=== PATIENT | male | born 1930 | race Caucasian/White ===

== ENCOUNTER 2018-03-26 15:07 | Inpatient (IN) | payer MEDICARE ==
[2018-03-26] MEDS ORDERED: Sodium Chloride 0.9% 500 ML IV ONE (19:05)
[2018-03-26] MEDS ORDERED: Acetaminophen/HYDROcodone 325-5 MG Tab PO PRN (19:05)
[2018-03-26] MEDS ORDERED: Acetaminophen 325 MG Tab PO PRN (19:05)
[2018-03-26] MEDS ORDERED: Ondansetron 4 MG Tab.DIS PO PRN (19:05)
[2018-03-26] MEDS ORDERED: valACYclovir 1,000 MG Tab PO SCH (21:00)
[2018-03-26] MEDS ORDERED: valACYclovir 1,000 MG Tab PO ONE (21:30)
[2018-03-26] MEDS: Cephalexin 500 MG Cap PO SCH (21:30)
[2018-03-26] MEDS: Enoxaparin 30 MG/0.3 ML Syringe SUBCUT SCH (21:30)
[2018-03-27] MEDS: Sodium Chloride 0.9% 1,000 ML IV SCH ×3 (03:03→23:03)
[2018-03-27] MEDS ORDERED: cefTRIAXone 1,000 MG in Sodium Chloride 0.9% 50 ML IV SCH (09:15)
--- NOTE | 2018-03-27 09:22 | PCM.HP ---
H&P History of Present Illness - General Date of Service: 03/27/18 Admit Problem/Dx: Admission Diagnosis/Problem Admission Diagnosis/Problem Acute kidney injury Source of Information: Patient History Limitations: Reports: No Limitations - History of Present Illness Initial Comments - Free Text/Narative: This is an 87-year-old male patient that was sent to the ER by Dr. Stringer because of worsening labs. Apparently his creatinine is increasing. He has a history of chronic renal failure. Patient is a very poor historian. He says he came here because he has sores on his scrotum. He has no history of any viral infection including herpes. He has history of prostate cancer saw urologist last August 2017. For the last 4-6 months after this he's been leaking urine consistently. He does a straight catheter at night but during the day wears depends and leaks urine all day. He has pain in sores all over his scrotum. He has no fevers, chills, dysuria, pyuria, hematuria. He denies back pain or fatigue. Scrotum Pain Score (Numeric/FACES): 0 - Related Data Allergies/Adverse Reactions: Allergies Allergy/AdvReac Type Severity Reaction Status Date / Time No Known Allergies Allergy Verified 03/26/18 16:05 Home Medications: Home Meds Sennosides [Senna Laxative] 12.5 mg PO DAILY 07/03/16 [History] Tamsulosin [Tamsulosin 24 Hr] 0.4 mg PO DAILY 07/03/16 [History] amLODIPine [Norvasc] 5 mg PO DAILY 07/03/16 [History] Betamethasone/Clotrimazole [Lotrisone] 1 applic BID 03/26/18 [History] Celecoxib 200 mg DAILY 03/26/18 [History] Cephalexin 500 mg BID 03/26/18 [History] Leuprolide [Lupron Depot] 30 mg IM ASDIRECTED 03/26/18 [History] Past Medical History HEENT History: Reports: Impaired Vision Cardiovascular History: Reports: Hypertension Genitourinary History: Reports: BPH, Prostate Disorder, Renal Disease, Urinary Incontinence Musculoskeletal History: Reports: Osteoarthritis Other Musculoskeletal History: R knee pain, recent steroid injection May 2016, Psychiatric History: Reports: Anxiety, Depression Oncologic (Cancer) History: Reports: Prostate Other Oncologic History: injections for prostate CA - Infectious Disease History Infectious Disease History: Reports: Chicken Pox - Past Surgical History Head Surgeries/Procedures: Reports: None Male Surgical History: Reports: TURP-Transurethral Resection of Prostate, Vasectomy Musculoskeletal Surgical History: Reports: Hip Replacement Other Musculoskeletal Surgeries/Procedures:: R hip replacement Oncologic Surgical History: Reports: None Social & Family History - Family History Family Medical History: Noncontributory - Tobacco Use Smoking Status *Q: Never Smoker Second Hand Smoke Exposure: Yes - Caffeine Use Caffeine Use: Reports: Coffee Other Caffeine Use: 2-3 CUPS PER DAY - Recreational Drug Use Recreational Drug Use: No - Living Situation & Occupation Living situation: Reports: Single, Other Occupation: Retired H&P Review of Systems - Review of Systems: Review Of Systems: See Below General: Reports: No Symptoms HEENT: Reports: Rhinitis Pulmonary: Reports: No Symptoms Cardiovascular: Reports: No Symptoms Gastrointestinal: Reports: No Symptoms Genitourinary: Reports: Incontinence. Denies: Dysuria, Frequency, Urgency, Hematuria, Discharge Musculoskeletal: Reports: No Symptoms Skin: Reports: Other (See history of present illness) Psychiatric: Reports: No Symptoms Neurological: Reports: No Symptoms Hematologic/Lymphatic: Reports: No Symptoms Immunologic: Reports: No Symptoms Exam - Exam Exam: See Below - Vital Signs Vital Signs: Last Vital Signs Temp 97.4 F 03/27/18 08:00 Pulse 66 03/27/18 08:00 Resp 18 03/27/18 08:00 BP 120/62 03/27/18 08:00 Pulse Ox 97 03/27/18 08:00 Weight: 183 lb 9.6 oz - Exam General: Alert, Oriented, Cooperative HEENT: Mucosa Moist & Grubbs, Posterior Pharynx Clear, TMs Clear Neck: Supple, Trachea Midline, Full Range of Motion. No: Lymphadenopathy, Carotid Bruit Lungs: Clear to Auscultation, Normal Respiratory Effort. No: Crackles, Rales, Rhonchi, Wheezing Cardiovascular: Regular Rhythm, Normal S2. No: Irregular Rhythm, Bradycardia, Tachycardia, Systolic Murmur, Diastolic Murmur GI/Abdominal Exam: Normal Bowel Sounds, Soft, Non-Tender, No Organomegaly, No Distention, No Abnormal Bruit, No Mass (Male) Exam: Other (Patient is uncircumcised and he is leaking urine when I examined him. His scrotum is slightly swollen and the skin please see skin exam) Back Exam: Normal Inspection, Full Range of Motion Extremities: Normal Inspection, Non-Tender, No Pedal Edema Skin: Other (Skin on the posterior scrotum and medial thighs has a little breakdown of the epithelium and ulcers. They're not drainage. There is just residual urine standing.) Neurological: Normal Gait, Normal Speech Neuro Extensive - Mental Status: Alert, Oriented x3, Normal Mood/Affect Neuro Extensive - Motor, Sensory, Reflexes: Normal Gait Psychiatric: Alert, Normal Mood - Patient Data Lab Results Last 24 hrs: Laboratory Results - last 24 hr 03/26/18 03/26/18 03/26/18 Range/Units 15:40 15:40 15:40 WBC 10.3 (4.5-12.0) X10-3/uL RBC 4.06 L (4.30-5.75) x10(6)uL Hgb 11.8 (11.5-15.5) g/dL Hct 36.6 (30.0-51.3) % MCV 90.1 (80-96) fL MCH 29.1 (27.7-33.6) pg MCHC 32.3 (32.2-35.4) g/dL RDW 13.2 (11.5-15.5) % Plt Count 278 (125-369) X10(3)uL MPV 7.8 (7.4-10.4) fL Neut % (Auto) 72.1 (46-82) % Lymph % (Auto) 18.1 (13-37) % [place] % (Auto) 7.0 (4-12) % Eos % (Auto) 2 (1.0-5.0) % Baso % (Auto) 1 (0-2) % Neut # (Auto) 7.4 (1.6-8.3) # Lymph # (Auto) 1.9 (0.6-5.0) # [place] # (Auto) 0.7 (0.0-1.3) # Eos # (Auto) 0.2 (0.0-0.8) # Baso # (Auto) 0.1 (0.0-0.2) # Sodium 139 (135-145) mmol/L Potassium 4.2 (3.5-5.3) mmol/L Chloride 105 (100-110) mmol/L Carbon Dioxide 20 L (21-32) mmol/L BUN 66 H (7-18) mg/dL Creatinine 4.2 H* (0.70-1.30) mg/dL Est Cr Clr Drug Dosing 12.16 mL/min Estimated GFR (MDRD) 13 L (>60) BUN/Creatinine Ratio 15.7 (9-20) Glucose 126 H (80-116) mg/dL Lactic Acid 2.1 (0.4-2.2) mmol/L Calcium 8.8 (8.6-10.2) mg/dL Total Bilirubin 0.3 (0.1-1.3) mg/dL AST 17 (5-25) IU/L ALT 16 (12-36) U/L Alkaline Phosphatase 68 (56-112) IU/L Total Protein 8.8 H (6.0-8.0) g/dL Albumin 2.8 L (3.2-4.6) g/dL Globulin 6.0 g/dL Albumin/Globulin Ratio 0.5 Urine Color (YELLOW) Urine Appearance (CLEAR) Urine pH (5.0-6.5) Ur Specific [place] (1.010-1.025) Urine Protein (NEGATIVE) mg/dL Urine Glucose (UA) (NEGATIVE) mg/dL Urine Ketones (NEGATIVE) mg/dL Urine Occult Blood (NEGATIVE) Urine Nitrite (NEGATIVE) Urine Bilirubin (NEGATIVE) Urine Urobilinogen (NEGATIVE) mg/dL Ur Leukocyte Esterase (NEGATIVE) Urine RBC (0) Urine WBC (0) 18 03/26/18 Range/Units 15:48 16:30 WBC (4.5-12.0) X10-3/uL RBC (4.30-5.75) x10(6)uL Hgb (11.5-15.5) g/dL Hct (30.0-51.3) % MCV (80-96) fL MCH (27.7-33.6) pg MCHC (32.2-35.4) g/dL RDW (11.5-15.5) % Plt Count (125-369) X10(3)uL MPV (7.4-10.4) fL Neut % (Auto) (46-82) % Lymph % (Auto) (13-37) % [place] % (Auto) (4-12) % Eos % (Auto) (1.0-5.0) % Baso % (Auto) (0-2) % Neut # (Auto) (1.6-8.3) # Lymph # (Auto) (0.6-5.0) # [place] # (Auto) (0.0-1.3) # Eos # (Auto) (0.0-0.8) # Baso # (Auto) (0.0-0.2) # Sodium (135-145) mmol/L Potassium (3.5-5.3) mmol/L Chloride (100-110) mmol/L Carbon Dioxide (21-32) mmol/L BUN (7-18) mg/dL Creatinine (0.70-1.30) mg/dL Est Cr Clr Drug Dosing mL/min Estimated GFR (MDRD) (>60) BUN/Creatinine Ratio (9-20) Glucose (80-116) mg/dL Lactic Acid (0.4-2.2) mmol/L Calcium (8.6-10.2) mg/dL Total Bilirubin (0.1-1.3) mg/dL AST (5-25) IU/L ALT (12-36) U/L Alkaline Phosphatase (56-112) IU/L Total Protein (6.0-8.0) g/dL Albumin (3.2-4.6) g/dL Globulin g/dL Albumin/Globulin Ratio Urine Color Yellow Yellow (YELLOW) Urine Appearance Turbid Turbid (CLEAR) Urine pH 6.0 6.0 (5.0-6.5) Ur Specific [place] 1.010 1.010 (1.010-1.025) Urine Protein 30 H 30 H (NEGATIVE) mg/dL Urine Glucose (UA) Normal Normal (NEGATIVE) mg/dL Urine Ketones Negative Negative (NEGATIVE) mg/dL Urine Occult Blood Large H Large H (NEGATIVE) Urine Nitrite Negative Negative (NEGATIVE) Urine Bilirubin Negative Negative (NEGATIVE) Urine Urobilinogen Normal Normal (NEGATIVE) mg/dL Ur Leukocyte Esterase Large H Large H (NEGATIVE) Urine RBC Packed H (0) Urine WBC Packed H (0) Result Diagrams: 03/26/18 15:40 03/26/18 15:40 - Problem List (1) Acute renal failure SNOMED Code(s): 23767573 ICD Code: N17.9 - ACUTE KIDNEY FAILURE, UNSPECIFIED Status: Acute Current Visit: Yes (2) Urinary incontinence SNOMED Code(s): 631200532 ICD Code: R32 - UNSPECIFIED URINARY INCONTINENCE Status: Acute Current Visit: Yes (3) Ulcer, scrotum SNOMED Code(s): 4312353 ICD Code: N50.89 - OTHER SPECIFIED DISORDERS OF THE MALE GENITAL ORGANS Status: Acute Current Visit: Yes (4) Palliative care status SNOMED Code(s): 283170953 ICD Code: Z51.5 - ENCOUNTER FOR PALLIATIVE CARE Status: Acute Current Visit: Yes (5) History of prostate cancer SNOMED Code(s): 179816921 ICD Code: Z85.46 - PERSONAL HISTORY OF MALIGNANT NEOPLASM OF PROSTATE Status: Acute Current Visit: Yes (6) UTI, Urinary tract infectious disease SNOMED Code(s): 42062522 ICD Code: N39.0 - URINARY TRACT INFECTION, SITE NOT SPECIFIED Status: Acute Current Visit: No Problem List Initiated/Reviewed/Updated: Yes Orders Last 24hrs: Active Orders 24 hr Category Date Time Status Patient Status [ADT] Routine ADT 03/26/18 18:56 Active Notify Provider Vital Signs [RC] ASDIRECTED Care 03/26/18 19:01 Active Oxygen Therapy [RC] PRN Care 03/26/18 18:56 Active Pulse Oximetry [RC] PRN Care 03/26/18 19:01 Active Vital Signs [RC] 00,04,08,12,16,20 Care 03/26/18 18:56 Active Regular Diet [DIET] Diet 03/27/18 Breakfast Active Renal Comp [US] Routine Exams 03/27/18 09:16 Ordered BASIC METABOLIC PANEL,BMP [CHEM] AM Lab 03/27/18 09:30 Ordered CULTURE BLOOD [BC] Urgent Lab 03/26/18 15:40 Received CULTURE BLOOD [BC] Urgent Lab 03/26/18 15:50 Received CULTURE URINE [RM] Stat Lab 03/26/18 15:49 Ordered HIV RNA, RT PCR (NONGRAPH) PL Urgent Lab 03/26/18 15:40 Received T PALLIDUM AB (FTA-AB) Urgent Lab 03/26/18 15:40 Received UA W/MICROSCOPIC [URIN] Urgent Lab 03/26/18 16:30 Ordered UA W/O MICROSCOPIC [URIN] Stat Lab 03/26/18 15:48 Ordered Acetaminophen [Tylenol] Med 03/26/18 19:05 Active 650 mg PO Q4H PRN Acetaminophen/HYDROcodone [[place] 325-5 MG] Med 03/26/18 19:05 Active 1 tab PO Q4H PRN Docusate Sodium/Sennosides [Senna Plus] Med 03/26/18 19:05 Active 1 tab PO BID PRN Enoxaparin [Lovenox] Med 03/26/18 20:00 Active 30 mg SUBCUT Q24H Ondansetron [Zofran ODT] Med 03/26/18 19:05 Active 4 mg PO Q6H PRN Sennosides [Senna] Med 03/27/18 09:00 Active 12.9 mg PO DAILY Sodium Chloride 0.9% [Normal Saline] 1,000 ml Med 03/26/18 22:15 Active IV ASDIRECTED Tamsulosin [Flomax] Med 03/27/18 09:00 Active 0.4 mg PO DAILY amLODIPine [Norvasc] Med 03/27/18 09:00 Active 5 mg PO DAILY cefTRIAXone [Rocephin] 1,000 mg Med 03/27/18 09:15 Ordered Sodium Chloride 0.9% [Normal Saline] 50 ml IV Q24H valACYclovir [Valtrex] Med 03/27/18 21:00 Active 1,000 mg PO BEDTIME Blood Culture x2 Reflex Set [OM.PC] Urgent Oth 03/26/18 15:47 Ordered Resuscitation Status Routine Resus Stat 03/26/18 18:56 Ordered Medication Orders Acetaminophen (Tylenol) 650 mg PO Q4H PRN PRN Reason: Pain (Mild 1-3)/fever Hydrocodone Bitart/Acetaminophen ([place] 325-5 Mg) 1 tab PO Q4H PRN PRN Reason: Pain (moderate 4-6) Amlodipine Besylate (Norvasc) 5 mg PO DAILY [facility] Enoxaparin Sodium (Lovenox) 30 mg SUBCUT Q24H [facility] Last Admin: 03/26/18 21:30 Dose: 30 mg Sodium Chloride (Normal Saline) 1,000 mls @ 100 mls/hr IV ASDIRECTED ROSENDA Last Admin: 03/27/18 03:03 Dose: 100 mls/hr Ceftriaxone Sodium 1,000 mg/ (Sodium Chloride) 50 mls @ 100 mls/hr IV Q24H [facility] Ondansetron HCl (Zofran Odt) 4 mg PO Q6H PRN PRN Reason: nausea, able to take PO Senna (Senna) 12.9 mg PO DAILY [facility] Senna/Docusate Sodium (Senna Plus) 1 tab PO BID PRN PRN Reason: Constipation Tamsulosin HCl (Flomax) 0.4 mg PO DAILY [facility] Valacyclovir HCl (Valtrex) 1,000 mg PO BEDTIME [facility] Assessment/Plan Comment:: 1. Admit to inpatient. 2. He was initially started on an antiviral. I believe this is from his incontinence and screen breakdown. I will stop the antiviral. 3. Patient wants to be a full code. 4. VTE prophylaxis with Lovenox 5. Repeat his BMP 6. I stopped cephalexin start on Rocephin. I will have pharmacy calculate the proper dose for his kidney failure. 7 Wound care and scrotum. 8. I will have the nurse to bladder scan residuals and then place a Coronado catheter. 9. Culture the urine. 7. Ultrasound kidneys in am. 8. Tomorrow morning when essential is open get some old records on this patient.
[2018-03-27] MEDS: amLODIPine 5 MG Tab PO SCH (09:52)
[2018-03-27] MEDS: Tamsulosin 0.4 MG Cap.ER PO SCH (09:52)
[2018-03-27] MEDS: cefTRIAXone 1,000 MG VIAL IV SCH (09:53)
[2018-03-27] MEDS: Sennosides 8.6 MG Tab PO SCH (09:58)
[2018-03-27] MEDS: Cephalexin 500 MG Cap PO SCH (10:16)
[2018-03-27] MEDS: Enoxaparin 30 MG/0.3 ML Syringe SUBCUT SCH (20:09)
[2018-03-27] MEDS ORDERED: valACYclovir 1,000 MG Tab PO SCH (21:00)
[2018-03-28] MEDS ORDERED: LEUPROLIDE 30 MG IM SCH (08:30)
--- NOTE | 2018-03-28 08:33 | PCM.PN ---
- General Info Date of Service: 03/28/18 Admission Dx/Problem (Free Text): Patient states that he still feels a scrotum when he sits on it. Less pain and itching. He has a catheter in and is tolerating it. He denies fevers, chills, abdominal pain, cough, shortness of breath. - Patient Data Vitals - Most Recent: Last Vital Signs Temp 98.1 F 03/28/18 00:00 Pulse 74 03/28/18 00:00 Resp 16 03/28/18 00:00 BP 111/54 L 03/28/18 00:00 Pulse Ox 97 03/28/18 00:00 Weight - Most Recent: 183 lb 9.6 oz I&O - Last 24 Hours: Intake & Output 03/27/18 03/28/18 03/28/18 22:59 06:59 14:59 Intake Total 2048 745 Output Total 1500 1275 Balance 548 -530 Lab Results Last 24 Hours: Laboratory Results - last 24 hr 03/27/18 03/28/18 Range/Units 12:20 06:25 Sodium 140 142 (135-145) mmol/L Potassium 3.6 4.2 (3.5-5.3) mmol/L Chloride 108 111 H (100-110) mmol/L Carbon Dioxide 20 L 20 L (21-32) mmol/L BUN 54 H D 48 H (7-18) mg/dL Creatinine 3.6 H* 3.0 H* (0.70-1.30) mg/dL Est Cr Clr Drug Dosing 14.18 17.02 mL/min Estimated GFR (MDRD) 16 L 20 L (>60) BUN/Creatinine Ratio 15.0 16.0 (9-20) Glucose 119 H 91 (80-116) mg/dL Calcium 8.5 L 8.0 L (8.6-10.2) mg/dL [place] Results Last 24 Hours: Microbiology 03/26/18 15:49 Urine Culture - Preliminary Urine, Catheterized Gram Negative Rods 03/26/18 15:50 Aerobic Blood Culture - Preliminary Blood - Venous - Lab Draw NO GROWTH AFTER 1 DAY Anaerobic Blood Culture - Preliminary NO GROWTH AFTER 1 DAY 03/26/18 15:40 Aerobic Blood Culture - Preliminary Blood - Venous NO GROWTH AFTER 1 DAY Anaerobic Blood Culture - Preliminary NO GROWTH AFTER 1 DAY Med Orders - Current: Current Medications Acetaminophen (Tylenol) 650 mg PO Q4H PRN PRN Reason: Pain (Mild 1-3)/fever Hydrocodone Bitart/Acetaminophen ([place] 325-5 Mg) 1 tab PO Q4H PRN PRN Reason: Pain (moderate 4-6) Amlodipine Besylate (Norvasc) 5 mg PO DAILY [facility] Last Admin: 03/27/18 09:52 Dose: 5 mg Ceftriaxone Sodium (Rocephin) 1,000 mg IV Q24H [facility] Last Admin: 03/27/18 09:53 Dose: 1,000 mg Enoxaparin Sodium (Lovenox) 30 mg SUBCUT Q24H [facility] Last Admin: 03/27/18 20:09 Dose: 30 mg Sodium Chloride (Normal Saline) 1,000 mls @ 100 mls/hr IV ASDIRECTED [facility] Last Admin: 03/27/18 23:03 Dose: 100 mls/hr Non-Formulary Medication (Leuprolide [Lupron Depot 4-Month]) 30 mg IM ASDIRECTED [facility] Ondansetron HCl (Zofran Odt) 4 mg PO Q6H PRN PRN Reason: nausea, able to take PO Senna (Senna) 12.9 mg PO DAILY [facility] Last Admin: 03/27/18 09:58 Dose: 12.9 mg Senna/Docusate Sodium (Senna Plus) 1 tab PO BID PRN PRN Reason: Constipation Tamsulosin HCl (Flomax) 0.4 mg PO DAILY [facility] Last Admin: 03/27/18 09:52 Dose: 0.4 mg Discontinued Medications Cephalexin (Keflex) 500 mg PO BID [facility] Last Admin: 03/27/18 10:16 Dose: Not Given Sodium Chloride (Normal Saline) 500 mls @ 300 mls/hr IV .BOLUS ONE Stop: 03/26/18 20:44 Last Admin: 03/26/18 20:35 Dose: 300 mls/hr Ceftriaxone Sodium 1,000 mg/ (Sodium Chloride) 50 mls @ 100 mls/hr IV Q24H [facility] Last Admin: 03/27/18 10:16 Dose: Not Given Valacyclovir HCl (Valtrex) 1,000 mg PO BID [facility] Last Admin: 03/26/18 21:30 Dose: 1,000 mg Valacyclovir HCl (Valtrex) 1,000 mg PO BEDTIME [facility] Valacyclovir HCl (Valtrex) 1,000 mg PO ONETIME ONE Stop: 03/26/18 21:31 Last Admin: 03/27/18 03:02 Dose: Not Given - Exam General: Alert, Oriented, Cooperative Neck: Supple Lungs: Clear to Auscultation, Normal Respiratory Effort GI/Abdominal Exam: Normal Bowel Sounds, Soft, Non-Tender, No Organomegaly, No Distention Back Exam: Normal Inspection, Full Range of Motion Extremities: No Pedal Edema Neurological: Normal Gait Psy/Mental Status: Alert, Normal Affect, Normal Mood - Problem List & Annotations (1) Acute renal failure SNOMED Code(s): 52741578 Code(s): N17.9 - ACUTE KIDNEY FAILURE, UNSPECIFIED Status: Acute Current Visit: Yes (2) Urinary incontinence SNOMED Code(s): 674404485 Code(s): R32 - UNSPECIFIED URINARY INCONTINENCE Status: Acute Current Visit: Yes (3) Ulcer, scrotum SNOMED Code(s): 1830976 Code(s): N50.89 - OTHER SPECIFIED DISORDERS OF THE MALE GENITAL ORGANS Status: Acute Current Visit: Yes (4) Palliative care status SNOMED Code(s): 156272443 Code(s): Z51.5 - ENCOUNTER FOR PALLIATIVE CARE Status: Acute Current Visit: Yes (5) History of prostate cancer SNOMED Code(s): 146313871 Code(s): Z85.46 - PERSONAL HISTORY OF MALIGNANT NEOPLASM OF PROSTATE Status : Acute Current Visit: Yes (6) UTI, Urinary tract infectious disease SNOMED Code(s): 96325447 Code(s): N39.0 - URINARY TRACT INFECTION, SITE NOT SPECIFIED Status: Acute Current Visit: No - Problem List Review Problem List Initiated/Reviewed/Updated: Yes - My Orders Last 24 Hours: My Active Orders 03/27/18 09:00 Insert Coronado Catheter [Insert Urinary Catheter] [OM.PC] Q24H 03/27/18 09:30 cefTRIAXone [Rocephin] 1,000 mg IV Q24H 03/27/18 10:24 Urinary Catheter Assessment [RC] 08,16,00 03/28/18 08:30 Ambulate [RC] QID Leuprolide [Lupron Depot 4-Month] 30 mg IM ASDIRECTED 03/28/18 09:16 Renal Comp [US] Routine - Plan Plan:: 1. Renal ultrasound today. 2. Ambulate minimum 4 times a day. 3. Teach catheter care today. 4. Urine is growing gram negative rods. Wait for EDGAR. 5. BMP in a.m.
[2018-03-28] MEDS: Sodium Chloride 0.9% 1,000 ML IV SCH ×2 (09:08→19:10)
[2018-03-28] MEDS: amLODIPine 5 MG Tab PO SCH (09:24)
[2018-03-28] MEDS: Tamsulosin 0.4 MG Cap.ER PO SCH (09:24)
[2018-03-28] MEDS: cefTRIAXone 1,000 MG VIAL IV SCH (09:25)
[2018-03-28] MEDS: Sennosides 8.6 MG Tab PO SCH (09:25)
--- NOTE | 2018-03-28 10:44 | ER ---
DATE SEEN: 03/26/2018 HISTORY OF PRESENT ILLNESS: This is an 87-year-old man, who is pround to be [place], said he was called by Dr. Stringer and advised to be seen in the hospital because of elevated PSA and kidney compounds. The patient has known prostate cancer. He has had incontinence symptoms intermittently that have gotten worse. He self-caths himself once a time at nighttime (he has poor renal function), but he does have urine incontinence throughout the day and noted more recently in the last 3 to 4 days, increasing pain on the scrotum. He has been scratching his scrotum and he had lesions on his scrotum. He denies syphylis, herpes or exposures to somebody who might have had this. His scrotum is so tender, "I can't touch it." He was started an antibiotic after having been seen by Dr. Stringer yesterday and Keflex 500 mg t.i.d. He states, "I just don't feel good, I feel weaker. My legs are weak, I have difficulty walking. My knees are bad." He felt that he has been sick since he has come back from [place] in September 2017. PAST MEDICAL HISTORY: Significant for previous surgery of right total hip arthroplasty and vasectomy. REVIEW OF SYSTEMS: HEENT: Dry skin and slight decrease in his vision. He denies cataracts, but on examination he has cataracts. Hearing is slightly decreased. No pain or problem with his teeth. No change. CARDIOVASCULAR: He denies chest pain or shortness of breath or previous heart attack. He has had more shortness of breath in the last 3 to 4 days with dyspnea on exertion of 30 to 40 yards. He denies chest pain. He has a clear productive cough. No problem with his teeth, no change. CONSTITUTIONAL: He notes his skin is slightly dry. No previous history of myocardial infarction or CVA or GERD or weight loss. GENITOURINARY: He has had prostate cancer and progressive increase of incontinence and swelling of the foreskin. MEDICATIONS: 1. Tylenol. 2. Amlodipine 5 mg daily. 3. Keflex started yesterday, 500 mg b.i.d. 4. Celecoxib 200 mg daily. 5. Lupron 30 mg, last dose was in December. 6. Lotrisone b.i.d. p.r.n. 7. Senna laxative 12.5 mg daily. 8. Flomax 0.4 mg daily. ALLERGIES: None. PHYSICAL EXAMINATION: VITAL SIGNS: Blood pressure 135/68, heart rate 81 and regular, respirations 18, oxygen saturation 99%, temperature 37.1 degrees centigrade, and weight 83 kg, 27.1 kg/m2 of BMI. GENERAL: Asthenic, quiet, slightly hard of hearing, pleasant man, in mild distress. HEENT: He has mild periorbital erythema on the right more than the left. He says it has been itching. He denies any eyeball pain or compromise in vision. Hearing is decreased. Pharynx without abnormality. Minimally dry mucosa. NECK: No thyromegaly, masses, or cervical adenopathy. HEART: S2 is greater than S1. There is no murmur. No irregularity of heartbeat. No S3. No S4. No PMI. ABDOMEN: Soft. No guarding. No abdominal discomfort. He has a slightly foul odor. GENITOURINARY: He has removed his shorts. He has a TENS in place, and all of a sudden he had a gush of urine come to his penis. He has no control of his bladder per his discussion. It comes on and off throughout the day. The foreskin is somewhat has mild phimosis, and it is not constricting the penis, but it is encircling the tip of the penis, so approximately 1 cm is visible of the glans centered with the meatus. He has mild edema of the scrotum, and has multiple lesions noted in the left greater than right with a mild laceration, but also denuded dermis and ulceration. He has mild erythema. It is very painful to touch, more on the left compared to the right. Scrotum was slightly enlarged. No masses were palpable within the scrotum. RECTAL: Not performed. Prostate exam was not performed. EXTREMITIES: Lower extremities without edema. Decreased pulses slightly in lower extremities and upper extremities, but they are present. No ulcers noted. Deep tendon reflexes are hypoactive in upper and lower extremities. NEUROLOGIC: Cranial nerves II through XII and gait are appropriate. No ataxia. Strength is appropriate for his age. Cranial nerves II through XII are intact except for hearing is decreased. LABORATORY FINDINGS: White count is normal at 10,300 with PMNs 72, lymphocytes 18, monos 7, hemoglobin 11.8, and platelets 248,000. Multiple abnormalities were noted on the complete metabolic panel. CO2 is 20 low, BUN 66, and creatinine 4.2. The patient has had a previous creatinine of 1.6 in June 2016 with BUN normal at that time. GFR was 41 at that time; today it is 13. Glucose 126. BUN and creatinine ratio of 15.7 (does not suggest dehydration). Total protein 8.8 and albumin 2.8. He had urinalysis with packed wbc's, packed rbc's, large leukocyte esterase, large blood occult, and 30 protein. The patient had a catheterized specimen obtained. There were so many packed rbc's and wbc's, was "difficult to see any bacteria," multiple bacteria presumed. ASSESSMENT AND PLAN: 1. Most likely, he has herpes simplex. Plan is valacyclovir 1 g b.i.d. for 10 days. 2. Urinary tract infection. Continue with the Keflex 500 mg - there is a concern that it potentially could cause further compromised kidneys. So, creatinines will be followed as he may have interstitial nephritis accentuated by the creatinine. He may be under hydrated, and so needs fluid replacement to improve his cardiac output and improved tissue oxygenation. If his preload is depressed, to improve the following response, but to help improve the perfusion of the kidneys, however, it is necessary to be followed closely to ascertain if this is more than just following volume of responsive. If he has improved urinalysis and decreased creatinine, that would suggest he has pre-renal disease and the supposition of under hydration is appropriate. Otherwise, he could have inherent glomerulonephritis, acute interstitial nephritis, or other involvement of his kidneys which were causing the acute kidney injury. 3. Scrotal ulcers, rule out herpes simplex virus. 4. Weakness, probably is secondary to his renal disease and also deconditioning. 5. Cataracts. 6. Asthenia. 7. Status post vasectomy. 8. Total hip arthroplasty, right side. 9. Mild phimosis and also scrotal irritations. 10.S2 suggest cardiac issues. He has rales in the right base. No suggestion of pneumonia on the patient's clinical findings. Urine culture, blood culture, lactate, CBC, CMP, and also PCR specimen contained. Rule out herpes simplex virus and DNA specimen with PCR. Currently, this is one of the fastest ways to make a diagnosis. 11.Treponemal antibody test was performed to rule out syphilis. The latter is a remote possibility. The patient was admitted for rehydration and follow creatinines and BUN. We rehydrated the patient. /[id number] ANGELA/KODY
--- NOTE | 2018-03-28 11:12 | US ---
INDICATIONS: Renal failure - increasing creatinine. RENAL ULTRASOUND, COMPLETE: Multiple ultrasonic images were obtained 03/28/2018 , no comparisons. The kidneys measured on the right 11.9 x 5.4 x 5.4 cm and on the left 12.2 x 5.3 x 5.7 cm. There is bilateral hydronephrosis, which may be on the basis of current or previous bilateral obstructive uropathy. Hydroureter is also suggested. The renal cortices appear to be fairly well-maintained. Renal cortical scarring appears minimal on the right and moderate on the left with irregularity of the cortex more prominent on the left. A definite focal renal mass is not identified. No definite calculi were seen within the kidneys. The urinary bladder showed evidence of severe trabeculation, which is thickest in the posterior basilar portions of the urinary bladder. A Coronado catheter is noted in place. The urinary bladder volume will be evaluated, as well as emptying of the bladder after catheter drainage. IMPRESSION: 1. Obstructive uropathy is suggested at the kidneys bilaterally. This appearance of hydronephrosis and hydroureter could be on the basis of previous obstruction and should be correlated clinically. 2. Renal cortical scarring, left greater than right, with the thickness of the renal cortices fairly well-maintained. 3. 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 4. Urinary bladder volume pre-catheter drainage, 129 mL; post-catheter drainage , 11.2 mL - no current obstructive uropathy of bilateral nature is suggested, therefore. MTDD
[2018-03-28] MEDS: Enoxaparin 30 MG/0.3 ML Syringe SUBCUT SCH (22:05)
[2018-03-29] MEDS: Sodium Chloride 0.9% 1,000 ML IV SCH (04:52)
--- NOTE | 2018-03-29 08:34 | PCM.PN ---
- General Info Date of Service: 03/29/18 Admission Dx/Problem (Free Text): Patient without complaints today. He denies fevers, chills, cough, chest pain, abdominal pain. He is tolerating the urinary catheter. - Patient Data Vitals - Most Recent: Last Vital Signs Temp 97.8 F 03/29/18 05:00 Pulse 66 03/29/18 05:00 Resp 16 03/29/18 05:00 BP 96/44 L 03/29/18 05:00 Pulse Ox 96 03/29/18 05:00 Weight - Most Recent: 183 lb 9.6 oz I&O - Last 24 Hours: Intake & Output 03/28/18 03/29/18 03/29/18 22:59 06:59 14:59 Intake Total 1312 680 Output Total 1600 775 Balance -288 -95 Lab Results Last 24 Hours: Laboratory Results - last 24 hr 03/29/18 Range/Units 06:15 Sodium 142 (135-145) mmol/L Potassium 3.9 (3.5-5.3) mmol/L Chloride 110 (100-110) mmol/L Carbon Dioxide 23 (21-32) mmol/L BUN 37 H D (7-18) mg/dL Creatinine 2.4 H* (0.70-1.30) mg/dL Est Cr Clr Drug Dosing 21.28 mL/min Estimated GFR (MDRD) 26 L (>60) BUN/Creatinine Ratio 15.4 (9-20) Glucose 85 (80-116) mg/dL Calcium 7.9 L (8.6-10.2) mg/dL Edgar Results Last 24 Hours: Microbiology 03/26/18 15:49 Urine Culture - Final Urine, Catheterized Proteus Mirabilis 03/26/18 15:50 Aerobic Blood Culture - Preliminary Blood - Venous - Lab Draw NO GROWTH AFTER 2 DAYS Anaerobic Blood Culture - Preliminary NO GROWTH AFTER 2 DAYS 03/26/18 15:40 Aerobic Blood Culture - Preliminary Blood - Venous NO GROWTH AFTER 2 DAYS Anaerobic Blood Culture - Preliminary NO GROWTH AFTER 2 DAYS Med Orders - Current: Current Medications Acetaminophen (Tylenol) 650 mg PO Q4H PRN PRN Reason: Pain (Mild 1-3)/fever Hydrocodone Bitart/Acetaminophen ([place] 325-5 Mg) 1 tab PO Q4H PRN PRN Reason: Pain (moderate 4-6) Amlodipine Besylate (Norvasc) 5 mg PO DAILY [facility] Last Admin: 03/28/18 09:24 Dose: 5 mg Ceftriaxone Sodium (Rocephin) 1,000 mg IV Q24H [facility] Last Admin: 03/28/18 09:25 Dose: 1,000 mg Enoxaparin Sodium (Lovenox) 30 mg SUBCUT Q24H [facility] Last Admin: 03/28/18 22:05 Dose: 30 mg Sodium Chloride (Normal Saline) 1,000 mls @ 100 mls/hr IV ASDIRECTED [facility] Last Admin: 03/29/18 04:52 Dose: 100 mls/hr Ondansetron HCl (Zofran Odt) 4 mg PO Q6H PRN PRN Reason: nausea, able to take PO Senna (Senna) 4.3 mg PO DAILY [facility] Senna/Docusate Sodium (Senna Plus) 1 tab PO BID PRN PRN Reason: Constipation Tamsulosin HCl (Flomax) 0.4 mg PO DAILY [facility] Last Admin: 03/28/18 09:24 Dose: 0.4 mg Discontinued Medications Cephalexin (Keflex) 500 mg PO BID [facility] Last Admin: 03/27/18 10:16 Dose: Not Given Sodium Chloride (Normal Saline) 500 mls @ 300 mls/hr IV .BOLUS ONE Stop: 03/26/18 20:44 Last Admin: 03/26/18 20:35 Dose: 300 mls/hr Ceftriaxone Sodium 1,000 mg/ (Sodium Chloride) 50 mls @ 100 mls/hr IV Q24H [facility] Last Admin: 03/27/18 10:16 Dose: Not Given Senna (Senna) 12.9 mg PO DAILY [facility] Last Admin: 03/28/18 09:25 Dose: 12.9 mg Valacyclovir HCl (Valtrex) 1,000 mg PO BID [facility] Last Admin: 03/26/18 21:30 Dose: 1,000 mg Valacyclovir HCl (Valtrex) 1,000 mg PO BEDTIME [facility] Valacyclovir HCl (Valtrex) 1,000 mg PO ONETIME ONE Stop: 03/26/18 21:31 Last Admin: 03/27/18 03:02 Dose: Not Given - Exam General: Alert, Oriented Lungs: Normal Respiratory Effort GI/Abdominal Exam: Normal Bowel Sounds, Soft, No Organomegaly, No Distention, No Mass Extremities: No Pedal Edema - Problem List & Annotations (1) Acute renal failure SNOMED Code(s): 61703363 Code(s): N17.9 - ACUTE KIDNEY FAILURE, UNSPECIFIED Status: Acute Current Visit: Yes (2) Urinary incontinence SNOMED Code(s): 976577556 Code(s): R32 - UNSPECIFIED URINARY INCONTINENCE Status: Acute Current Visit: Yes (3) Ulcer, scrotum SNOMED Code(s): 4907446 Code(s): N50.89 - OTHER SPECIFIED DISORDERS OF THE MALE GENITAL ORGANS Status: Acute Current Visit: Yes (4) Palliative care status SNOMED Code(s): 251203387 Code(s): Z51.5 - ENCOUNTER FOR PALLIATIVE CARE Status: Acute Current Visit: Yes (5) History of prostate cancer SNOMED Code(s): 530605033 Code(s): Z85.46 - PERSONAL HISTORY OF MALIGNANT NEOPLASM OF PROSTATE Status : Acute Current Visit: Yes (6) UTI, Urinary tract infectious disease SNOMED Code(s): 10078420 Code(s): N39.0 - URINARY TRACT INFECTION, SITE NOT SPECIFIED Status: Acute Current Visit: No - Problem List Review Problem List Initiated/Reviewed/Updated: Yes - My Orders Last 24 Hours: My Active Orders 03/28/18 08:30 Ambulate [RC] 09,13,17,21 03/29/18 09:00 Sennosides [Senna] 4.3 mg PO DAILY - Plan Plan:: 1. The urine grew Proteus and the creatinine started to 2.4. 2. Discharge to home with home health. He has cephalexin 500 mg twice a day which is a good dose for his UTI until it's gone. 10 days worth and only 3 pills are used. This should be adequate. 4. Follow-up with Dr. Stringer in 7-10 days and a urology appointment should be set up. 5. Should continue been indwelling catheter until he sees urology.
--- NOTE | 2018-03-29 08:43 | PCM.DCSUM1 ---
Discharge Summary - Hospital Course Free Text/Narrative:: Hospital course-patient was admitted and his creatinine was 4.2. CBC was normal and his urine had packed field of RBCs. He was placed on Rocephin and IV fluids. Initial doctor evaluated was worried about a viral infection of the scrotum. When I examined him he is leaking urine and his scrotum and inner thighs were macerated erythematous and was some mild ulcer from contact dermatitis. They were not infected. It appeared that he had postobstructive acute renal failure. His Creatinine was a little elevated previous but not like this. I did a bladder scan which showed 600 mL residual. Placed a Coronado catheter in 700 mL came out. After that his creatinine went from 3.6-down to 3.0 to the day of discharge of 2.4. His redness continued in the scrotum but improved and less painful and itchy. His urine grew Proteus mirabilis sensitive to everything but nitrofurantoin. Dr. Stringer his regular doctor had just given him cephalexin 500 mg by mouth twice a day. We'll send him home on this. He will go home with a Coronado catheter and will have home health see him. We'll have him follow-up with Dr. Stringer and get a BMP and a UA in 7-10 days. He sees urologist for his prostate cancer and he should get appointment with them also to evaluate this catheter issue in incontinence. He states he's been incontinent for several months. Brief History: This is an 87-year-old male patient that was sent to the ER by Dr. Stringer because of worsening labs. Apparently his creatinine is increasing. He has a history of chronic renal failure. Patient is a very poor historian. He says he came here because he has sores on his scrotum. He has no history of any viral infection including herpes. He has history of prostate cancer saw urologist last August 2017. For the last 4-6 months after this he's been leaking urine consistently. He does a straight catheter at night but during the day wears depends and leaks urine all day. He has pain in sores all over his scrotum. He has no fevers, chills, dysuria, pyuria, hematuria. He denies back pain or fatigue. - Discharge Data Discharge Date: 05/15/18 Discharge Disposition: Home, W Home Health Agency 06 Condition: Good - Discharge Diagnosis/Problem(s) (1) Acute renal failure SNOMED Code(s): 67677674 ICD Code: N17.9 - ACUTE KIDNEY FAILURE, UNSPECIFIED Status: Acute Current Visit: Yes (2) Urinary incontinence SNOMED Code(s): 622051420 ICD Code: R32 - UNSPECIFIED URINARY INCONTINENCE Status: Acute Current Visit: Yes (3) Ulcer, scrotum SNOMED Code(s): 3810907 ICD Code: N50.89 - OTHER SPECIFIED DISORDERS OF THE MALE GENITAL ORGANS Status: Acute Current Visit: Yes (4) Palliative care status SNOMED Code(s): 671635515 ICD Code: Z51.5 - ENCOUNTER FOR PALLIATIVE CARE Status: Acute Current Visit: Yes (5) History of prostate cancer SNOMED Code(s): 797265282 ICD Code: Z85.46 - PERSONAL HISTORY OF MALIGNANT NEOPLASM OF PROSTATE Status: Acute Current Visit: Yes (6) UTI, Urinary tract infectious disease SNOMED Code(s): 81678651 ICD Code: N39.0 - URINARY TRACT INFECTION, SITE NOT SPECIFIED Status: Acute Current Visit: No - Patient Instructions Diet: Regular Diet as Tolerated Activity: As Tolerated Driving: May Drive Today Showering/Bathing: May Shower Notify Provider of: Fever, Increased Pain, Swelling and Redness Other/Special Instructions: 1. Discharge to home on home health. This is for evaluation of his scrotum, catheter care and training. Home safety evaluation. 2. Recheck with Dr. Stringer in 7-10 days with a UA and BMP at the appointment. 3. Set up appointment for recheck urology at [facility]. - Discharge Plan Home Medications: Home Meds Tamsulosin [Flomax] 0.4 mg PO DAILY 07/03/16 [History] amLODIPine [Norvasc] 5 mg PO DAILY 07/03/16 [History] Betamethasone/Clotrimazole [Lotrisone] 1 applic TOP BID 03/26/18 [History] Leuprolide [Lupron Dep[place] 4-Month] 30 mg IM Q120D 03/26/18 [History] Bicalutamide [Casodex] 50 mg PO DAILY 03/28/18 [History] Sennosides [Senna Lax] 4.3 mg PO DAILY 03/28/18 [History] Cephalexin 500 mg PO BID 03/29/18 [History] Patient Handouts: Urinary Tract Infection, Adult, Hand Washing, [id number], Genital Herpes, Fall Prevention in Hospitals, Adult, Deep Vein Thrombosis Forms: ED Department Discharge Referrals: Aubrey Stringer MD [Primary Care Provider] - - Discharge Summary/Plan Comment DC Time >30 min.: Yes - Patient Data Vitals - Most Recent: Last Vital Signs Temp 97.8 F 03/29/18 05:00 Pulse 66 03/29/18 05:00 Resp 16 03/29/18 05:00 BP 96/44 L 03/29/18 05:00 Pulse Ox 96 03/29/18 05:00 Weight - Most Recent: 183 lb 9.6 oz I&O - Last 24 hours: Intake & Output 03/28/18 03/29/18 03/29/18 22:59 06:59 14:59 Intake Total 1312 680 Output Total 1600 775 Balance -288 -95 Lab Results - Last 24 hrs: Laboratory Results - last 24 hr 03/29/18 Range/Units 06:15 Sodium 142 (135-145) mmol/L Potassium 3.9 (3.5-5.3) mmol/L Chloride 110 (100-110) mmol/L Carbon Dioxide 23 (21-32) mmol/L BUN 37 H D (7-18) mg/dL Creatinine 2.4 H* (0.70-1.30) mg/dL Est Cr Clr Drug Dosing 21.28 mL/min Estimated GFR (MDRD) 26 L (>60) BUN/Creatinine Ratio 15.4 (9-20) Glucose 85 (80-116) mg/dL Calcium 7.9 L (8.6-10.2) mg/dL NE[facility]H Results - Last 24 hrs: Microbiology 03/26/18 15:49 Urine Culture - Final Urine, Catheterized Proteus Mirabilis 03/26/18 15:50 Aerobic Blood Culture - Preliminary Blood - Venous - Lab Draw NO GROWTH AFTER 2 DAYS Anaerobic Blood Culture - Preliminary NO GROWTH AFTER 2 DAYS 03/26/18 15:40 Aerobic Blood Culture - Preliminary Blood - Venous NO GROWTH AFTER 2 DAYS Anaerobic Blood Culture - Preliminary NO GROWTH AFTER 2 DAYS Med Orders - Current: Current Medications Acetaminophen (Tylenol) 650 mg PO Q4H PRN PRN Reason: Pain (Mild 1-3)/fever Hydrocodone Bitart/Acetaminophen ([place] 325-5 Mg) 1 tab PO Q4H PRN PRN Reason: Pain (moderate 4-6) Amlodipine Besylate (Norvasc) 5 mg PO DAILY [facility] Last Admin: 03/28/18 09:24 Dose: 5 mg Ceftriaxone Sodium (Rocephin) 1,000 mg IV Q24H [facility] Last Admin: 03/28/18 09:25 Dose: 1,000 mg Enoxaparin Sodium (Lovenox) 30 mg SUBCUT Q24H [facility] Last Admin: 03/28/18 22:05 Dose: 30 mg Sodium Chloride (Normal Saline) 1,000 mls @ 100 mls/hr IV ASDIRECTED [facility] Last Admin: 03/29/18 04:52 Dose: 100 mls/hr Ondansetron HCl (Zofran Odt) 4 mg PO Q6H PRN PRN Reason: nausea, able to take PO Senna (Senna) 4.3 mg PO DAILY [facility] Senna/Docusate Sodium (Senna Plus) 1 tab PO BID PRN PRN Reason: Constipation Tamsulosin HCl (Flomax) 0.4 mg PO DAILY [facility] Last Admin: 03/28/18 09:24 Dose: 0.4 mg Discontinued Medications Cephalexin (Keflex) 500 mg PO BID [facility] Last Admin: 03/27/18 10:16 Dose: Not Given Sodium Chloride (Normal Saline) 500 mls @ 300 mls/hr IV .BOLUS ONE Stop: 03/26/18 20:44 Last Admin: 03/26/18 20:35 Dose: 300 mls/hr Ceftriaxone Sodium 1,000 mg/ (Sodium Chloride) 50 mls @ 100 mls/hr IV Q24H [facility] Last Admin: 03/27/18 10:16 Dose: Not Given Senna (Senna) 12.9 mg PO DAILY [facility] Last Admin: 03/28/18 09:25 Dose: 12.9 mg Valacyclovir HCl (Valtrex) 1,000 mg PO BID [facility] Last Admin: 03/26/18 21:30 Dose: 1,000 mg Valacyclovir HCl (Valtrex) 1,000 mg PO BEDTIME [facility] Valacyclovir HCl (Valtrex) 1,000 mg PO ONETIME ONE Stop: 03/26/18 21:31 Last Admin: 03/27/18 03:02 Dose: Not Given
[2018-03-29] MEDS ORDERED: Sennosides 8.6 MG Tab PO SCH (09:00)
[2018-03-29] MEDS: cefTRIAXone 1,000 MG VIAL IV SCH (09:24)
[2018-03-29 09:27] VITALS: BP 118/61
[2018-03-29] MEDS: Tamsulosin 0.4 MG Cap.ER PO SCH (09:27)
[2018-03-29] MEDS: amLODIPine 5 MG Tab PO SCH (09:27)
== END 2018-03-29 10:40 | disposition home health service (06) | DRG 683 ==
LOC: FB.ED 15:07 → FB.MS 18:56
PROVIDERS: ADMIT Emergency Medicine; ATTEND Family Medicine
DX: N17.9 Acute kidney failure, unspecified (principal); N39.0 Urinary tract infection, site not specified; C61 Malignant neoplasm of prostate; B96.4 Proteus (mirabilis) (morganii) as the cause of diseases classified elsewhere; N50.89 Other specified disorders of the male genital organs; R53.1 Weakness; N47.1 Phimosis; I12.9 Hypertensive chronic kidney disease with stage 1 through stage 4 chronic kidney disease, or unspecified chronic kidney disease; N18.9 Chronic kidney disease, unspecified; N40.1 Benign prostatic hyperplasia with lower urinary tract symptoms; N39.498 Other specified urinary incontinence; R97.21 Rising PSA following treatment for malignant neoplasm of prostate; Z51.5 Encounter for palliative care; M19.90 Unspecified osteoarthritis, unspecified site; Z96.641 Presence of right artificial hip joint; H54.7 Unspecified visual loss; Z79.2 Long term (current) use of antibiotics
CPT/HCPCS: 36415; 51701; 51702; 51798; 76770; 80048; 80053; 81001; 81003; 83605; 85025; 86780; 87040; 87086; 87088; 87186; 87255; 87536; 99285; A9270-GY; J0696; J1650; J7040